=== PATIENT | male | born 1960 | race Caucasian/White ===

== ENCOUNTER → 2020-08-22 10:42 | Outpatient (BNVA) | payer MEDICARE, MEDICAID, SELFPAY | PROVIDERS: PCP Nurse Practitioner Community Health; Visit Provider Nurse Practitioner | CPT/HCPCS: Q3014 ==

== ENCOUNTER → 2020-09-27 09:32 | Outpatient (BNVA) | payer MEDICARE, MEDICAID, SELFPAY | PROVIDERS: PCP Nurse Practitioner Community Health; Visit Provider Nurse Practitioner | DX: K59.04 Chronic idiopathic constipation (principal); R11.2 Nausea with vomiting, unspecified; Z87.19 Personal history of other diseases of the digestive system | CPT/HCPCS: Q3014 ==